=== PATIENT | female | born 1960 | race Caucasian/White ===

== ENCOUNTER → 2020-05-31 15:23 | Outpatient (BNVA) | payer OTHER, SELFPAY | PROVIDERS: Visit Provider Family Medicine | DX: M19.011 Primary osteoarthritis, right shoulder (principal); I10 Essential (primary) hypertension; E78.2 Mixed hyperlipidemia; I35.0 Nonrheumatic aortic (valve) stenosis | CPT/HCPCS: 80053; 80061 ==

== ENCOUNTER → 2020-08-16 11:15 | Outpatient (BNVA) | payer OTHER, SELFPAY | PROVIDERS: PCP Family Medicine; Visit Provider Internal Medicine Cardiovascular Disease | DX: I35.0 Nonrheumatic aortic (valve) stenosis (principal); Z20.822 Contact with and (suspected) exposure to COVID-19 | CPT/HCPCS: 87635 ==

== ENCOUNTER 2020-08-20 11:19 | Day surgery (SDC) | payer MEDICARE, SELFPAY ==
[2020-08-20 11:49] VITALS: BMI 33.2
[2020-08-20 11:50] VITALS: BP 138/91; PULSE 78; RESP 18; TEMP 36.7; O2SAT 96
--- NOTE | 2020-08-20 11:55 | USCV_ITS ---
Solomon Roy Age: 60 Gender: F : 1960 Exam Date: 08/20/2020 11:59 Ordering Phys: Marita Nielson MD ([email or web address]) Technologist: Kellie Pierre Exam Location: [facility] [place] Indication: BP: / HR: Rhythm: Sinus Technical Quality: MEASUREMENTS (Male / Female) Normal Values Medications Patient given IV sedation by anesthesia service, for details please refer to the anesthesia report. Complications None. Proc. Components KEKE was performed at multiple levels. FINDINGS Left Ventricle Normal left ventricular cavity size. Normal left ventricular systolic function. Left ventricular ejection fraction is estimated at 55 %. Right Ventricle The right ventricle is normal in size and function. Right Atrium The right atrium is normal in size. Left Atrium The left atrium is normal in size. LA Appendage The LA appendage is normal. IA Septum The interatrial septum is normal. Mitral Valve Mildly thickened mitral valve. No mitral valve stenosis. Mild mitral valve regurgitation. Aortic Valve Severe aortic valve calcification. Severe aortic valve stenosis. Aortic valve area by planimetry appeared to be 1.1 cm squared.trace aortic valve regurgitation. Tricuspid Valve Structurally normal tricuspid valve without significant stenosis or regurgitation. Pulmonary artery systolic pressure is normal. Pulmonic Valve Structurally normal pulmonic valve without significant stenosis. There is no pulmonic regurgitation. Pericardium Normal pericardium without effusion. Aorta Normal ascending aorta dimension. CONCLUSIONS 1-Normal left ventricular cavity size. Normal left ventricular systolic function. Left ventricular ejection fraction is estimated at 55 %. 2-Severe aortic valve calcification. Severe aortic valve stenosis. Aortic valve area by planimetry appeared to be 1.1 cm squared.trace aortic valve regurgitation. 3-Mildly thickened mitral valve. No mitral valve stenosis. Mild mitral valve regurgitation. 4-The interatrial septum is normal. 5-The LA appendage is normal. 6-There is no pericardial effusion. 7-There is no prior Transesophageal echocardiogram studies to compare. Marita Nielson MD (Electronically Signed) Final Date: 23 August 2020 21:49 S
--- NOTE | 2020-08-20 12:16 | P.HP_ITS ---
Same Day Surgery H&P Indication for Procedure/HPI DATE OF PROCEDURE: August 20, 2020 CHIEF COMPLAINT/INDICATIONFOR SURGICAL PROCEDURE: Moderate to severe aortic stenosis, symptomatic PREOP DIAGNOSIS: Moderate to severe aortic stenosis PLANNED PROCEDRUE: Operation Date: 08/20/20 12:30 Proposed Procedures p KEKE (Transesophageal Echocardiogram) 10770 I35.0(Not Applicable) - Marita Nielson MD 60-year-old female past medical history significant for hypertension hyperlipidemia for worsening of shortness of breath underwent transthoracic echocardiogram which showed moderate to severe aortic stenosis but moderate mean gradient of 21 mmHg. It is the reason we have order cross esophageal echocardiogram to assess aortic valve stenosis before proceeding with surgery. Patient has been explained all risk benefit and alternative for the procedure. She understand the risk of transesophageal echocardiogram including bleeding b ruising injury to the mouth esophagus leading to surgery. She would like to proceed with it. Medications/Allergies* Home Medications Medication Instructions Recorded Confirmed Type cholecalciferol (vitamin D3) 10 10 mcg PO TID cap 05/31/20 08/19/20 History mcg (400 unit) capsule multivitamin,br-cryy-pfflgptg 1 tab PO DAILY 05/31/20 08/19/20 History Allergies/Adverse Reactions Allergy/AdvReac Type Severity Reaction Status Date / Time Penicillins Allergy Mild ALGY-RASH Verified 05/31/20 14:49 Pertinent History/Comorbid Conditions* Medical History (Updated 05/31/20 @ 16:10 by Danielle Dailey MD) Arthritis of multiple sites Hypertension Mixed hyperlipidemia Surgical History (Updated 05/31/20 @ 15:14 by Danielle Dailey MD) H/O section H/O knee surgery right knee Hx of tonsillectomy Previous back surgery S/P appendectomy S/P cholecystectomy Family History (Updated 05/31/20 @ 14:54 by Alicia Mercado LPN) Diabetes CAD (coronary artery disease) Cancer Social History Smoking and tobacco status: former smoker Alcohol intake: never History of recent travel: No Current gender identity: Female Pertinent Exam Findings alert, oriented x 3, clear to auscultation bilaterally and regular rate & rhythm Related Problem List Diagnoses (1) Aortic stenosis: Qualifiers: Cardiac valve disease etiology: etiology unspecified Qualified Code(s): I35.0 - Nonrheumatic aortic (valve) stenosis Recommendations Surgery/Procedure today Coding Level of Care Code Acute 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
[2020-08-20 12:45] VITALS: BP 119/70; PULSE 92; RESP 18; O2SAT 95
[2020-08-20 13:08] VITALS: BP 109/70; PULSE 90; RESP 18; O2SAT 94
[2020-08-20 13:16] VITALS: BP 116/85; PULSE 84; RESP 18; O2SAT 97
--- NOTE | 2020-08-20 13:19 | ANES.PREANE2 ---
Pre-Anesthetic Assessment Pre-Anesthetic Assessment: Height/Weight: Height 1.55 m Weight 79.832 kg Temp Pulse Resp BP Pulse Ox 98.0 F 84 18 116/85 97 08/20/20 11:50 08/20/20 13:16 08/20/20 13:16 08/20/20 13:16 08/20/20 13:16 Preop Diagnosis: Moderate to severe aortic stenosis Proposed Procedure: Operation Date: 08/20/20 12:30 Proposed Procedures p KEKE (Transesophageal Echocardiogram) 50177 I35.0(Not Applicable) - Marita Nielson MD Was Beta Jeannine taken within 24 hours: N/A Was Clonidine taken within 24 hours: N/A Social: Social History: No alcohol and No tobacco Exam: Pre-Anes Outpt Exam: alert, oriented x 3, clear to auscultation bilaterally and regular rate & rhythm Airway: Submandibular: WNL Cervical ROM: WNL MP: 2 Dentition: Full CV/HEM: CV/HEM: HTN and Murmur (Moderate ) Anesthetic Plan: ASA status: 2 Anesthesia: MAC Risk of > 500 ml blood loss (7ml/kg in children): No PFSH Anesthesia PFSH: Medical History Arthritis of multiple sites Hypertension Mixed hyperlipidemia Surgical History H/O section H/O knee surgery right knee Hx of tonsillectomy Previous back surgery S/P appendectomy S/P cholecystectomy Family History Other CAD (coronary artery disease) Cancer Diabetes Social History (Updated 06/09/20 @ 12:26 by Carmela Aguirre LPN) Smoking and tobacco status: former smoker Alcohol intake: never History of recent travel: No Current gender identity: Female Female Reproductive History: Spontaneous abortions: No Data Anesthesia Cardiac Studies: No Data to Display
--- NOTE | 2020-08-20 13:20 | ANE.PACU2 ---
Inpatient post-anesthesia follow up: Airway intact: Yes Vital signs: Temperature 98.0 F Pulse Rate 84 Respiratory Rate 18 Blood Pressure 116/85 Pulse Oximetry 97 Oxygen Delivery Me thod Room Air Oxygen Flow Rate Fraction of Inspir ed Oxygen Hydration adequate: Yes Nausea and vomiting: No Pain level: 1 Mental status: Baseline
== END 2020-08-20 13:28 | disposition home or self-care (01) ==
PROVIDERS: PCP Family Medicine; Visit Provider Internal Medicine Cardiovascular Disease
PROC: (CPT 93312; principal; 2020-08-20 12:30)
DX: I35.0 Nonrheumatic aortic (valve) stenosis (principal); I10 Essential (primary) hypertension; E78.2 Mixed hyperlipidemia; Z87.891 Personal history of nicotine dependence
CPT/HCPCS: 36415; 93312; 93320; 93325; J2704

== ENCOUNTER → 2020-12-06 11:17 | Outpatient (BNVA) | payer MEDICARE, SELFPAY | PROVIDERS: PCP Family Medicine; Visit Provider Family Medicine | DX: I10 Essential (primary) hypertension (principal); E78.2 Mixed hyperlipidemia; M19.011 Primary osteoarthritis, right shoulder; M65.4 Radial styloid tenosynovitis [de Quervain] | CPT/HCPCS: 80053; 80061; 85025 ==

== ENCOUNTER → 2021-01-14 11:00 | Outpatient (BNVA) | payer MEDICARE, SELFPAY | PROVIDERS: PCP Family Medicine; Visit Provider Internal Medicine | DX: Z01.818 Encounter for other preprocedural examination (principal); E78.2 Mixed hyperlipidemia; I10 Essential (primary) hypertension; Z79.899 Other long term (current) drug therapy | CPT/HCPCS: 80048; 81003; 85025; 85610 ==

== ENCOUNTER → 2021-04-09 09:15 | Outpatient (BNVA) | payer MEDICARE, SELFPAY | PROVIDERS: PCP Family Medicine; Referring Provider Family Medicine; Visit Provider Family Medicine | DX: M19.011 Primary osteoarthritis, right shoulder (principal) | CPT/HCPCS: 73030 ==

== ENCOUNTER → 2021-07-18 15:36 | Outpatient (BNVA) | payer MEDICARE, SELFPAY | PROVIDERS: PCP Family Medicine; Visit Provider Family Medicine | DX: I10 Essential (primary) hypertension (principal); E78.2 Mixed hyperlipidemia; R53.82 Chronic fatigue, unspecified; M19.011 Primary osteoarthritis, right shoulder; I35.0 Nonrheumatic aortic (valve) stenosis; Z68.36 Body mass index [BMI] 36.0-36.9, adult | CPT/HCPCS: 80048; 82607; 82652; 84443; 85025 ==

== ENCOUNTER → 2021-07-25 08:14 | Outpatient (BNVA) | payer MEDICARE, SELFPAY | PROVIDERS: PCP Family Medicine; Visit Provider Specialist | DX: M19.011 Primary osteoarthritis, right shoulder (principal) | CPT/HCPCS: 73030 ==

== ENCOUNTER 2021-10-17 10:59 | Outpatient (CLI) | payer MEDICARE, SELFPAY ==
--- NOTE | 2021-10-17 11:00 | MR_ITS ---
WS: [id number] MRI RIGHT SHOULDER NONCONTRAST TECHNIQUE: Sagittal T2, coronal T1, T2 and proton density imaging. Axial gradient PDE imaging. CLINICAL INFORMATION: M19.011 - Primary osteoarthritis, right shoulder COMPARISON: None. FINDINGS: Moderate degenerative arthritis AC joint. Mild downsloping acromion. Slight subacromial spurring. Flu id and edema within the AC joint with synovial thickening. Small amount of subacromial/subdeltoid flu id. Subacromial spurring with slight impingement on the distal supraspinatus. Full-thickness tear involving the distal anterior supraspinatus with tendon retraction measuring appr oximately 9 to 10 mm. This is approximately 13 mm proximal to the insertion. Normal infraspinatus. Normal teres minor. Tendinopathy involving subscapularis. Tendinopathy with int rasubstance tear involving the intra-articular and proximal biceps tendon. Mid and distal biceps tend on appear intact within the bicipital groove. Degenerative fraying of the glenoid labrum. Subchondral cystic change along the greater tuberosity. S mall joint effusion. MR/MR shoulder RT wo con* [id number] IMPRESSION: 1. Full-thickness tear involving the distal supraspinatus approximately 13 mm proximal to the insertion with fluid signal cleft and tendon retraction measuri ng 10 mm. 2. Rotator cuff is otherwise intact. Tendinopathy involving the subscapularis. 3. Thickening with increased T2 signal abnormality intra-articular biceps tend on with tendinopathy and partial intrasubstance tear. Mid and distal biceps ten don appear intact within the bicipital groove. 4. Moderate degenerative arthritis AC joint with edema and mild downsloping of the acromion with subacromial spurring.
== END 2021-10-17 11:00 | disposition home or self-care (01) ==
PROVIDERS: PCP Family Medicine; Visit Provider Specialist
DX: M19.011 Primary osteoarthritis, right shoulder (principal); M75.121 Complete rotator cuff tear or rupture of right shoulder, not specified as traumatic
CPT/HCPCS: 73221

== ENCOUNTER → 2021-11-14 09:26 | Outpatient (BNVA) | payer MEDICARE, SELFPAY | PROVIDERS: PCP Family Medicine; Visit Provider Specialist | DX: M75.111 Incomplete rotator cuff tear or rupture of right shoulder, not specified as traumatic (principal); M67.911 Unspecified disorder of synovium and tendon, right shoulder | CPT/HCPCS: 20610; 99213; J1100; J2795; J3301 ==

== ENCOUNTER → 2022-01-30 09:13 | Outpatient (BNVA) | payer MEDICARE, SELFPAY | PROVIDERS: PCP Family Medicine; Visit Provider Family Medicine | DX: I10 Essential (primary) hypertension (principal); E78.2 Mixed hyperlipidemia; Z23 Encounter for immunization; I35.0 Nonrheumatic aortic (valve) stenosis; M13.0 Polyarthritis, unspecified | CPT/HCPCS: 80053; 80061 ==

== ENCOUNTER → 2022-11-06 14:54 | Outpatient (BNVA) | payer MEDICARE, SELFPAY | PROVIDERS: PCP Family Medicine; Visit Provider Family Medicine | DX: M13.0 Polyarthritis, unspecified (principal); I10 Essential (primary) hypertension; E78.2 Mixed hyperlipidemia; M67.911 Unspecified disorder of synovium and tendon, right shoulder; I35.0 Nonrheumatic aortic (valve) stenosis; Z68.34 Body mass index [BMI] 34.0-34.9, adult; G56.03 Carpal tunnel syndrome, bilateral upper limbs | CPT/HCPCS: 80053; 80061 ==

== ENCOUNTER → 2023-01-28 10:39 | Outpatient (BNVA) | payer MEDICARE, SELFPAY | PROVIDERS: PCP Family Medicine; Visit Provider Nurse Practitioner Family | DX: R68.89 Other general symptoms and signs (principal); R21 Rash and other nonspecific skin eruption; J40 Bronchitis, not specified as acute or chronic | CPT/HCPCS: 87400; 87426 ==

== ENCOUNTER → 2023-03-19 14:16 | Outpatient (BNVA) | payer MEDICARE, SELFPAY | PROVIDERS: PCP Family Medicine; Visit Provider Family Medicine | DX: R53.83 Other fatigue (principal); R10.2 Pelvic and perineal pain; G47.10 Hypersomnia, unspecified; R06.83 Snoring; R53.82 Chronic fatigue, unspecified | CPT/HCPCS: 80053; 81000; 84443; 85025; 87086 ==

== ENCOUNTER 2023-06-13 15:30 | Outpatient (CLI) | payer MEDICARE, SELFPAY | END 2023-06-13 15:31 | disposition home or self-care (01) | LOC: SLEEP 06-14 15:59 | PROVIDERS: PCP Family Medicine; Visit Provider Family Medicine | DX: G47.33 Obstructive sleep apnea (adult) (pediatric) (principal); R09.02 Hypoxemia; G47.10 Hypersomnia, unspecified; R06.83 Snoring | CPT/HCPCS: G0399 ==

== ENCOUNTER → 2023-07-02 10:59 | Outpatient (BNVA) | payer MEDICARE, SELFPAY | PROVIDERS: PCP Family Medicine; Visit Provider Family Medicine | DX: M25.50 Pain in unspecified joint (principal) | CPT/HCPCS: 84550; 85651; 86038; 86140 ==

== ENCOUNTER 2023-07-09 09:06 | Outpatient (CLI) | payer MEDICARE, SELFPAY ==
[2023-07-09 11:04] LABS: Ferritin 130 ng/mL (15-150); Thyroid Stimulating Hormone 1.89 uIU/mL (0.27-4.20); Vitamin B12 596 pg/mL (232-1245)
[2023-07-09 11:32] LABS: Folate Level > 20.0 ng/mL (4.8-37.3)
[2023-07-09 12:30] LABS: Free T4 Free Thyroxine 1.33 ng/dL (0.82-1.77)
[2023-07-12 00:39] LABS: Zinc Level, Serum or Plasma 73 mcg/dL (60-130)
== END 2023-07-09 09:07 | disposition home or self-care (01) ==
LOC: LAB 09:15
PROVIDERS: PCP Family Medicine; Visit Provider Nurse Practitioner Family
DX: L65.9 Nonscarring hair loss, unspecified (principal); L81.4 Other melanin hyperpigmentation; B07.8 Other viral warts; T22.211A Burn of second degree of right forearm, initial encounter; T22.212A Burn of second degree of left forearm, initial encounter; X58.XXXA Exposure to other specified factors, initial encounter; D22.62 Melanocytic nevi of left upper limb, including shoulder; L57.8 Other skin changes due to chronic exposure to nonionizing radiation
CPT/HCPCS: 17110; 36415; 82607; 82728; 82746; 84439; 84443; 84630; 99204

== ENCOUNTER → 2023-08-27 12:37 | Outpatient (BNVA) | payer MEDICARE, SELFPAY | PROVIDERS: PCP Family Medicine; Visit Provider Nurse Practitioner Family | DX: B07.8 Other viral warts (principal); L81.4 Other melanin hyperpigmentation; D22.62 Melanocytic nevi of left upper limb, including shoulder; L57.8 Other skin changes due to chronic exposure to nonionizing radiation | CPT/HCPCS: 17110; 99213 ==

== ENCOUNTER → 2023-09-17 08:04 | Outpatient (BNVA) | payer MEDICARE, SELFPAY | PROVIDERS: PCP Family Medicine; Visit Provider Nurse Practitioner Family | DX: B07.8 Other viral warts (principal); L81.4 Other melanin hyperpigmentation; L57.8 Other skin changes due to chronic exposure to nonionizing radiation | CPT/HCPCS: 17110; 99213 ==

== ENCOUNTER → 2023-10-15 09:48 | Outpatient (BNVA) | payer MEDICARE, SELFPAY | PROVIDERS: PCP Family Medicine; Visit Provider Nurse Practitioner Family | DX: B07.8 Other viral warts (principal); L57.8 Other skin changes due to chronic exposure to nonionizing radiation | CPT/HCPCS: 17110; 99213 ==

== ENCOUNTER → 2023-11-19 08:34 | Outpatient (BNVA) | payer MEDICARE, SELFPAY | PROVIDERS: PCP Family Medicine; Visit Provider Nurse Practitioner Family | DX: B07.8 Other viral warts (principal); L57.8 Other skin changes due to chronic exposure to nonionizing radiation | CPT/HCPCS: 17110; 99213 ==

== ENCOUNTER → 2023-12-17 09:08 | Outpatient (BNVA) | payer MEDICARE, SELFPAY | PROVIDERS: PCP Family Medicine; Visit Provider Nurse Practitioner Family | DX: B07.8 Other viral warts (principal); L57.8 Other skin changes due to chronic exposure to nonionizing radiation | CPT/HCPCS: 17110; 99213 ==

== ENCOUNTER → 2024-02-25 08:51 | Outpatient (BNVA) | payer MEDICARE, SELFPAY | PROVIDERS: PCP Family Medicine; Visit Provider Family Medicine | DX: I10 Essential (primary) hypertension (principal); E78.2 Mixed hyperlipidemia; M10.9 Gout, unspecified | CPT/HCPCS: 80053; 80061; 84550 ==

== ENCOUNTER → 2024-08-11 09:37 | Outpatient (BNVA) | payer MEDICARE, SELFPAY | PROVIDERS: PCP Family Medicine; Visit Provider Family Medicine | DX: R74.8 Abnormal levels of other serum enzymes (principal) | CPT/HCPCS: 80053 ==